=== PATIENT | female | born 1995 | race Caucasian/White ===

== ENCOUNTER 2023-07-22 14:20 | Emergency (ER) | payer OTHER ==
[2023-07-22] MEDS ORDERED: Ketorolac Tromethamine 30 MG/ML VIAL ONE ×2 (16:04→16:05)
[2023-07-22] MEDS ORDERED: Dexamethasone 10 MG/ML VIAL ONE (16:04)
[2023-07-22] MEDS ORDERED: diphenhydrAMINE 50 MG/ML VIAL ONE (16:04)
[2023-07-22] MEDS ORDERED: Metoclopramide HCl 10 MG/2 ML VIAL ONE (16:05)
[2023-07-22 16:47] LABS: #Basophils 0.1 thou/uL (0.0-0.2); #Eosinphils 0.1 thou/uL (0.0-0.7); #Monocytes 0.4 thou/uL (0.11-0.59); #Neutrophils 2.2 thou/uL (1.40-6.50); %Basophils 1.3 % (0.0-1.0); %Eosinophils 2.5 % (0.0-10.0); %Lymphocytes 38.4 % (21.0-51.0); %Monocytes 8.8 % (0.0-10.0); %Neutrophils 48.8 % (42.0-75.0); Hematocrit 41.9 % (36.0-47.0); Hemoglobin 14.2 g/dL (12.0-16.0); Mean Corpuscular HGB CONC 33.9 g/dL (32.0-36.0); Mean Corpuscular Hemoglobin 32.6 pg (27.0-31.0); Mean Corpuscular Volume 96.1 fl (78.0-98.0); Mean Platelet Volume 10.3 fL (7.4-10.4); Platelet Count 263 10x3/uL (130-400); RBC Distribution Width 11.9 % (11.5-14.5); Red Blood Cell (RBC) Count 4.36 mill/uL (4.20-5.40); White Blood Cell (WBC) Count 4.5 10x3/uL (4.8-10.8)
[2023-07-22 17:04] LABS: BHCG - Serum Negative (NEGATIVE); Pregs Control Background? CLEAR/WHITE (CLR/WHITE); Pregs Control Bar Appear? YES (CONTROL BAR)
[2023-07-22 17:13] LABS: ALT (SGPT) 19 U/L (8-55); AST (SGOT) 18 U/L (5-34); Albumin 4.4 g/dL (3.5-5.0); Alkaline Phosphatase 73 U/L (40-110); Anion Gap 11 mmol/L (10-20); BUN (Urea Nitrogen) 12 mg/dL (7.0-18.7); Bilirubin, Total 1.5 mg/dL (0.2-1.2); Calc. Creatinine Clearance 0 mL/min (70-130); Calcium 9.1 mg/dL (7.8-10.44); Carbon Dioxide 28 mmol/L (22-29); Chloride 106 mmol/L (98-107); Estimated GFR 104; Globulin 2.8 g/dL (2.4-3.5); Glucose 93 mg/dL (70-105); Protein, Total 7.2 g/dL (6.0-8.3); Sodium 141 mmol/L (136-145)
== END 2023-07-22 17:14 | disposition home or self-care (01) ==
LOC: ERS 14:20
DX: R51.9 Headache, unspecified (principal)
CPT/HCPCS: 70450; 80053; 84703; 85025; 96365; 96375; J1100; J1200; J1885; J2765

== ENCOUNTER 2023-10-25 18:11 | Emergency (ER) | payer OTHER ==
[2023-10-25] MEDS ORDERED: Ketorolac Tromethamine 30 MG (1 mL) VIAL ONE (20:52)
[2023-10-25] MEDS ORDERED: Acetaminophen/Codeine 30-300mg Tablet ONE (20:53)
[2023-10-25] MEDS ORDERED: predniSONE 20 MG TAB ONE (20:53)
[2023-10-25 21:18] LABS: Bacteria/HPF None Seen HPF (None Seen); Bilirubin Negative (Negative); Blood, Urine Negative (Negative); CAUTI Indications for Culture Pelvic or flank pain; Clarity Clear (Clear); Glucose, Urine (Dipstick) Normal (Negative); Ketone, Urine Negative (Negative); Leukocyte Negative Leu/uL (Negative); Mucous/LPF Rare LPF (<2+); Nitrite Negative (Negative); Pregnancy Test - Urine (BHCG) Negative (Negative); Pregu Control Background? CLEAR/WHITE (CLR/WHITE); Pregu Control Bar Appear? YES (CONTROL BAR); Protein, Urine (Dipstick) 10 mg/dL (Neg-Trace); RBC/HPF 0-3 HPF (0-3); Specific Gravity 1.022 (1.002-1.036); Specific Gravity, Urine 1.022 (1.002-1.036); Squamous Epithelial 0-3 HPF (0-3); WBC/HPF 0-3 HPF (0-3)
[2023-10-25 21:23] LABS: Urine Culture Reflex No No
== END 2023-10-25 21:06 | disposition home or self-care (01) ==
LOC: ERS 18:11
DX: S39.012A Strain of muscle, fascia and tendon of lower back, initial encounter (principal); X50.9XXA Other and unspecified overexertion or strenuous movements or postures, initial encounter
CPT/HCPCS: 81001; 81025; 96374; J1885; J7512

== ENCOUNTER 2025-07-06 07:31 | Outpatient (CLI) | payer OTHER | END 2025-07-06 07:32 | disposition home or self-care (01) | LOC: SCSMRI 07:31 | PROVIDERS: ATTEND Internal Medicine | DX: M54.2 Cervicalgia (principal); R20.0 Anesthesia of skin; M50.221 Other cervical disc displacement at C4-C5 level; M50.222 Other cervical disc displacement at C5-C6 level; M50.223 Other cervical disc displacement at C6-C7 level; M48.02 Spinal stenosis, cervical region | CPT/HCPCS: 72141 ==